=== PATIENT | male | born 1995 | race Caucasian/White ===

== ENCOUNTER 2021-05-16 07:44 | Emergency (ER) | payer OTHER, BC ==
[2021-05-16] MEDS ORDERED: Lidocaine 1% with EPINEPHrine 1:100,000 20 ML MDV INJECT ONE (08:14)
--- NOTE | 2021-05-16 08:33 | EDM.PDOC ---
ED HPI GENERAL MEDICAL PROBLEM - General Chief Complaint: Laceration Stated Complaint: LEG LAC Time Seen by Provider: 05/16/21 08:14 Source of Information: Reports: Patient History Limitations: Reports: No Limitations - History of Present Illness INITIAL COMMENTS - FREE TEXT/NARRATIVE: 26 yo M with deep laceration to R thigh. Was using a metal neutralizer that slipped and cut his leg. Injury occurred at work just prior to arrival. Moderate pain, mild bleeding. No numbness/weakness. No additional injury. Last Tdap was within last 3 years. No additional complaint. Onset: Today Right Leg Pain Score (Numeric/FACES): 8 - Related Data Allergies Allergy/AdvReac Type Severity Reaction Status Date / Time No Known Allergies Allergy Verified 05/16/21 07:58 Home Meds: Home Meds cephALEXin [Cephalexin] 500 mg PO BID #10 capsule 05/16/21 [Rx] Past Medical History Psychiatric History: Reports: Anxiety Social & Family History - Tobacco Use Tobacco Use Status *Q: Former Tobacco User Used Tobacco, but Quit: Yes Month/Year Tobacco Last Used: 3 yrs ago ED ROS GENERAL - Review of Systems Review Of Systems: See Below Constitutional: Reports: No Symptoms HEENT: Reports: No Symptoms Respiratory: Reports: No Symptoms Cardiovascular: Reports: No Symptoms Endocrine: Reports: No Symptoms GI/Abdominal: Reports: No Symptoms Musculoskeletal: Reports: Other (R thigh laceration ) Skin: Reports: Wound Neurological: Reports: No Symptoms Psychiatric: Reports: No Symptoms Hematologic/Lymphatic: Reports: No Symptoms Immunologic: Reports: No Symptoms ED EXAM, SKIN/RASH Exam: See Below Exam Limited By: No Limitations General Appearance: Alert, WD/WN, No Apparent Distress Eye Exam: Bilateral Eye: Normal Inspection Ears: Normal External Exam Throat/Mouth: Normal Inspection Head: Atraumatic, Normocephalic Neck: Normal Inspection, Supple Respiratory/Chest: No Respiratory Distress Cardiovascular: Normal Peripheral Pulses GI/Abdominal: No Distention Extremities: Normal Range of Motion, Other (RLE: 7 cm wound to R lateral thigh area, deep, moderately contaminated with flecks of metal material, mild bleeding/no pulsatile bleeding, wound penetrates through muscle fascia and approx 2 cm deep through the muscle layer, no apparent nerve/tendon/artery injury. Lac is linear. ) Neurological: Alert, Oriented, Normal Cognition, No Motor/Sensory Deficits Psychiatric: Normal Affect, Normal Mood Skin: Warm, Dry, Normal Color ED SKIN PROCEDURES - Laceration/Wound Repair Right Lower Lateral Thigh Appearance: Superficial, Subcutaneous, Muscle, Linear, Moderately Contaminated Distal NVT: Neuro & Vascular Intact, No Tendon Injury Anesthetic Type: Local Local Anesthesia - Lidocaine (Xylocaine): 1% with EPI Local Anesthetic Volume: Other (10 cc) Skin Prep: Providone-Iodine (Betadine) Saline Irrigation (cc's): 1,000 Exploration/Debridement/Repair: Wound Explored, In a Bloodless Field, Explored to Base, Moderate Debridement, Foreign Material Removed Closed with: Sutures Lac/Wound length In cm: 7 Suture Size: 4-0 # of Sutures: 4 Suture Type: Prolene, Interrupted, Simple Suture Size: 4-0 # of Sutures: 2 Repaired with: Vicryl Suture Size: 4-0 # of Sutures: 2 Repaired with: Vicryl Drain Placement: No Sterile Dressing Applied: Nurse Tetanus Status Addressed: Yes Complications: No Course - Vital Signs Last Recorded V/S: Last Vital Signs Temp 36.7 C 05/16/21 07:55 Pulse 64 05/16/21 07:55 Resp 18 05/16/21 07:55 BP 132/84 05/16/21 07:55 Pulse Ox 98 05/16/21 07:55 - Orders/Labs/Meds Meds: Medications Discontinued Medications Generic Name Dose Route Start Last Admin Trade Name Lakeisha PRN Reason Stop Dose Admin Bacitracin 2 gm 05/16/21 08:35 05/16/21 08:57 Bacitracin Oint 15 Gm Tube TOP 05/16/21 08:36 2 gm ONETIME ONE Administration Lidocaine/Epinephrine 20 ml 05/16/21 08:14 05/16/21 08:30 Lidocaine 1% With Epinephrine 1:100,000 20 Ml Mdv INJECT 05/16/21 08:15 20 ml ONETIME ONE Administration - Re-Assessments/Exams Free Text/Narrative Re-Assessment/Exam: 05/16/21 09:35 Wound repaired. Will prophylax with cephalexin given hx lupus/on chronic steroids and moderately contaminated deep wound requiring 3 layer closure. Provided crutches, encouraged nonweightbearing to allow deep layers to heal. Discussed ED return precautions. Departure - Departure Time of Disposition: 09:36 Disposition: Home, Self-Care 01 Preliminary Cause of *Q: Other_Special Instruction Condition: Good Clinical Impression: Laceration of left leg Qualifiers: Encounter type: initial encounter Qualified Code(s): S81.812A - Laceration without foreign body, left lower leg, initial encounter - Discharge Information *PRESCRIPTION DRUG MONITORING PROGRAM REVIEWED*: Not Applicable *COPY OF PRESCRIPTION DRUG MONITORING REPORT IN PATIENT TERRY: Not Applicable Prescriptions: cephALEXin [Cephalexin] 500 mg PO BID #10 capsule Instructions: Laceration Care, Adult, [id number] Referrals: Joya Waller MD [Primary Care Provider] - Forms: ED Department Discharge Additional Instructions: 1. Take a shower or gently clean laceration daily. Pat dry and apply over the counter antibiotic ointment, then cover wound. 2. Use crutches ideally for a week to give the deep layers a chance to heal. Continue to use crutches until you can walk without significant pain or limping. 3. Take ibuprofen and/or acetaminophen as needed for pain. Take cephalexin as prescribed to help prevent infection. 4. Sutures should be removed in about 12-14 days, either by your primary care provider or urgent care. Deep sutures will absorb and do not need removal. 5. Return to the ED as needed for worsening pain, redness, fever, or pus in the wound. Sepsis Event Note (ED) - Evaluation Sepsis Screening Result: No Definite Risk
[2021-05-16] MEDS ORDERED: Bacitracin Oint 15 GM Tube TOP ONE (08:35)
== END 2021-05-16 09:24 | disposition home or self-care (01) ==
LOC: JD.ED 07:44
DX: S71.111A Laceration without foreign body, right thigh, initial encounter (principal); Z87.891 Personal history of nicotine dependence; W26.8XXA Contact with other sharp object(s), not elsewhere classified, initial encounter; Y99.0 Civilian activity done for income or pay
CPT/HCPCS: 12032; 99282-25; 99283; A9270-GY